=== PATIENT | female | born 1965 | race Caucasian/White ===

== ENCOUNTER 2017-04-10 08:24 | Emergency (ER) | payer OTHER ==
[~2017-04-10] VITALS: Wt 70.0 kg
[2017-04-10] MEDS ORDERED: KETOROLAC 60 MG INJ IM STA (09:03)
--- NOTE | 2017-04-10 09:09 | ERD ---
ER Documentation Chief Complaint Chief Complaint back pain HPI 51 y/o female previously healthy presents to the ED c/o acute onset of lower back pain for 1 day, worse on the left side. Pain is sharp, 8/10, worsened by lateral rotation. treatment attempted: baclofen with mild relief of the pain . No history of trauma. Denies limb weakness, numbness or incontinence. No urinary symptoms ROS SYSTEMIC symptoms: No fever, no chills, no night sweats EYE symptoms: No eyesight problems. OTOLARYNGEAL symptoms: No hearing loss. CARDIOVASCULAR symptoms: No chest pain or discomfort, no palpitations. PULMONARY symptoms: No dyspnea, no cough, no wheezing. GASTROINTESTINAL symptoms: No abdominal pain, no nausea, no vomiting SKIN no rashes NEUROLOGY symptoms: No confusion, no syncope, no numbness or tingling. All systems reviewed and are negative except as per history of present illness. Physical Exam Vitals Vital Signs Date Time Temp Pulse Resp B/P Pulse Ox O2 Delivery O2 Flow Rate FiO2 04/10/17 08:25 98.1 82 18 136/78 99 Physical Exam Head: Atraumatic Neck: Full range of motion. No meningeal signs Resp: Clear to auscultation bilaterally Cardio: Regular rate and rhythm, no murmurs Skin: No petechiae or rashes Back: Normal inspection. No vertebral tenderness, no CVA tenderness. Left lower back with muscle spasm. Ext: Normal reflexes Neuro: No motor or sensory deficit Results 24 hrs Laboratory Tests Test 04/10/17 09:10 Bedside Urine pH (LAB) 6.0 Bedside Urine Protein (LAB) Negative Bedside Urine Glucose (UA) Negative Bedside Urine Ketones (LAB) Negative Bedside Urine Blood Negative Bedside Urine Nitrite (LAB) Negative Bedside Urine Leukocyte Esterase (L Negative Current Medications Medications (Trade) Dose Ordered Sig/Christiano Route PRN Reason Start Time Stop Time Status Last Admin Dose Admin Ketorolac Tromethamine (Toradol) 60 mg ONCE STAT IM 04/10/17 09:03 04/10/17 09:05 DC Procedures/MDM Low back pain: no red flags. Neurovascular intact. no clinical findings suggestive of acute process, no deformity, no edema. Most likely musculoskeletal. Urine is negative for infection or hematuria, negative test. The patient received Toradol IM with improvement of the pain. The patient will be DC home with a Rx for Baclofen, Ibuprofen and [place] #12. The patient was instructed to follow up with PCP in 2-4 days, if the doctor is unavailable and the symptoms persist or worsen, the patient should return to the hospital immediately. Departure Condition: Stable GONZÁLEZ WATSON MD Apr 10, 2017 09:09
[2017-04-10 09:10] LABS: URINE BLOOD (Dip) POC Negative (NEGATIVE)
[2017-04-10] MEDS ORDERED: BACL10TA PO (09:28)
[2017-04-10] MEDS ORDERED: IBUP-1542 PO (09:28)
[2017-04-10] MEDS ORDERED: HYDR-906 PO (09:28)
[2017-04-10] MEDS ORDERED: ONDA4TAB8 PO (09:34)
== END 2017-04-10 09:37 | disposition home or self-care (01) ==
LOC: FTE 08:24
DX: M54.5 Low back pain (principal)
CPT/HCPCS: 81003; 96372; 99284; J1885